=== PATIENT | male | born 1995 | race Caucasian/White ===

== ENCOUNTER 2017-04-03 13:31 | Emergency (ER) | payer BC ==
--- NOTE | ~2017-04-03 | ER ---
PATIENT'S NAME: [facility] AGE: 21 Y [address] 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 He said afterwards he washed it out with hydrogen peroxide. The patient is not certain on his last tetanus. PAST MEDICAL HISTORY: ALLERGIES: NO MEDICINAL ALLERGIES. HOME MEDICATIONS: None. MEDICAL HISTORY: He has no chronic diseases. SURGERIES: None. SOCIAL HISTORY: Nonsmoker. REVIEW OF SYSTEMS: All negative except for the laceration to his left thumb. OBJECTIVE FINDINGS: VITAL SIGNS: Reviewed. MUSCULOSKELETAL: Exam of his left thumb showed a somewhat elliptical laceration on the lateral side of his left thumb, part of it appeared just superficial. He had normal flexion and extension of the thumb. ASSESSMENT: A 2-cm laceration, distal left thumb. PLAN: Treatment area was anesthetized with 1% Xylocaine. It was irrigated and cleansed with normal saline. The skin flap was tacked down with 4-0 Ethilon interrupted sutures x5. Antibiotic ointment and sterile dressing applied. PATIENT'S NAME: [facility] AGE: 21 Y [address] ROOM: [place] [address] LOCATION: [facility] ADMIT DATE: 04/03/2017 ER/Outpatient Report DISCHARGE DATE: 04/03/2017 FAMILY PHYSICIAN: Pascual Rodriguez MD ATTENDING PHYSICIAN: David Larson The patient was given Tdap tetanus update. The patient was advised on wound care. Sutures to be removed in 1 week. I did explain due to the nature of the flap, that there is a possibility that the skin itself could possibly not be viable. The patient verbalized understanding of plan of treatment. ROMINA VALENCIA FOR MD TJ HOBBS/modl /[id number] d: 04/03/172019 t: 04/13/17 174, OUTPATIENT REPORT
== END 2017-04-03 14:08 | disposition disaster alternative care site (69) ==
LOC: GACC 13:31
PROC: 0HQGXZZ Repair Left Hand Skin, External Approach (ICD-10-PCS; principal; 2017-04-03)
DX: S61.012A Laceration without foreign body of left thumb without damage to nail, initial encounter (principal); W26.0XXA Contact with knife, initial encounter